=== PATIENT | female | born 1995 | race Caucasian/White ===

== ENCOUNTER 2017-10-24 21:15 | Emergency (ER) ==
[2017-10-24 21:25] VITALS: BP 119/77; TEMP 100.7; BMI 25.0
[2017-10-24] MEDS ORDERED: MOTRIN PO STA (21:49)
[2017-10-24] MEDS ORDERED: AMOXIL PO STA (22:20)
--- NOTE | 2017-10-24 22:30 | ED.PDOC ---
General ED Provider: Dr. DARRYL OCAMPO Chief Complaint: Sore Throat Stated Complaint: Patient comes to the ER having fever, headache and feeling bad 2 days ago. Tmax 102 yesterday, sore throat, pain in ears. Also reports that she had emesis x 3 yesterday. He son diagnosed with flu a 1 1/2-2 weeks ago Time Seen by Physician: 22:00 Mode of Arrival: Walk-In Information Source: Patient Exam Limitations: No limitations Primary Care Provider: OPHELIA LINDA Nursing and Triage Documentation Reviewed and Agree: Yes Reviewed sepsis parameters & appropriate labs ordered?: Yes System Inflammatory Response Syndrome: Pulse >90 BPM Sepsis Protocol: For patient's 13 years and over: Temp is 96.8 and below OR 101 and greater Pulse >90 BPM Resp >20/minute Acutely Altered Mental Status Are patient's symptoms suggestive of a new infection, such as: -Pneumonia -Skin, Soft Tissue -Endocarditis -UTI -Bone, Joint Infection -Implantable Device -Acute Abdominal Infection -Wound Infection -Meningitis -Blood Stream Catheter Infection -Unknown System Inflammatory Response Syndrome: Not Applicable Review of Systems - Review Of Systems Constitutional: Reports: Fever, Loss of appetite Eyes: Reports: No symptoms Ears, Nose, Mouth, Throat: Reports: Throat pain Respiratory: Reports: No symptoms Cardiac: Reports: No symptoms GI: Reports: No symptoms : Reports: No symptoms Musculoskeletal: Reports: No symptoms Skin: Reports: No symptoms Neurological: Reports: No symptoms Endocrine: Reports: No symptoms Hematologic/Lymphatic: Reports: No symptoms All Other Systems: Reviewed and Negative Past Medical History - Past Medical History Previously Healthy: Yes Endocrine: Reports: None Cardiovascular: Reports: None Respiratory: Reports: None Hematological: Reports: None Gastrointestinal: Reports: None Genitourinary: Reports: None Neuro/Psych: Reports: None Musculoskeletal: Reports: None Cancer: Reports: None Last Menstrual Period: LAST WEEK - Surgical History General Surgical History: Reports: , Tonsillectomy, Adenoidectomy - Family History Family History: Reports: None - Social History Smoking Status: Never smoker Hx Substance Use: No Alcohol Screening: None - Immunizations Tetanus Shot up to Date: Yes Physical Exam - Physical Exam Appearance: Ill-appearing, Well-nourished Ill-appearing: Moderate Pain Distress: Moderate Eyes: ERICH, EOMI, Conjunctiva clear ENT: Ears normal, Nose normal, Oropharynx normal Neck: Supple Respiratory: Airway patent, Breath sounds clear, Breath sounds equal, Respirations nonlabored Cardiovascular: RRR, Pulses normal, No rub, No murmur Musculoskeletal: Normal strength, ROM intact, No edema, No calf tenderness Skin: Warm, Dry, Normal color Neurological: Sensation intact, Motor intact, Cranial nerves intact, Alert, Oriented Psychiatric: Affect appropriate, Mood appropriate Critical Care Note - Critical Care Note Total Time (mins): 0 Course - Course Orders, Labs, Meds: Lab Review 10/24/17 22:02 Influenza A (Rapid) Negative by naat Influenza B (Rapid) Negative by naat Orders Category Date Time Status FLU A & B MOLECULAR [FLU A/B MOLECULAR] Stat LAB 10/24/17 22:02 Completed MOLECULAR GROUP A STREP Stat LAB 10/24/17 22:02 Completed Amoxicillin [Amoxil] MEDS 10/24/17 22:20 Discontinued 500 mg PO ONCE STA Ibuprofen [Motrin] MEDS 10/24/17 21:49 Discontinued 800 mg PO ONCE STA Medications Discontinued Medications Generic Name Dose Route Start Last Admin Trade Name Longq PRN Reason Stop Dose Admin Amoxicillin 500 mg 10/24/17 22:20 10/24/17 22:26 Amoxil PO 10/24/17 22:21 500 mg ONCE STA Administration Ibuprofen 800 mg 10/24/17 21:49 10/24/17 22:04 Motrin PO 10/24/17 21:50 800 mg ONCE STA Administration Vital Signs: Temp Pulse Resp BP Pulse Ox 10/24/17 21:16 100.7 F H 93 H 20 119/77 95 Departure - Departure Time of Disposition: 22:30 Disposition: HOME SELF-CARE Discharge Problem: Streptococcal sore throat Instructions: Strep Throat (ED) Condition: Stable Pt referred to PMD for follow-up: Yes IPMP verified?: No Additional Instructions: push fluids Take medications as prescribed Follow up with PCP in 3 days Prescriptions: Amoxicillin [Amoxil] 500 mg PO TID #30 capsule Ibuprofen [Motrin] 600 mg PO Q6H PRN #30 tablet PRN Reason: Analgesia Allergies/Adverse Reactions: Allergies No Known Allergies Allergy (Verified 10/24/17 21:24) Home Medications: Ambulatory Orders Amoxicillin [Amoxil] 500 mg PO TID #30 capsule 10/24/17 Ibuprofen [Motrin] 600 mg PO Q6H PRN #30 tablet 10/24/17 Disposition Discussed With: Patient, Family
== END 2017-10-24 22:38 | disposition home or self-care (01) ==
LOC: ED 21:15
DX: J02.0 Streptococcal pharyngitis (principal)
CPT/HCPCS: 87502; 87651; 99283

== ENCOUNTER 2017-11-14 23:03 | Emergency (ER) ==
[2017-11-14 23:08] VITALS: TEMP 99; BMI 25.0
[2017-11-14] MEDS ORDERED: DUONEB NEB STA (23:51)
--- NOTE | 2017-11-15 01:43 | CT ---
Exam: CT angiography of the chest History: Dyspnea Technique: [address] of the chest utilizing CT angiography protocol. Multiplanar and thr ee-dimensional reformations were performed. FINDINGS: Technically adequate for evaluation of pulmonary arteries and aorta. There are no pulmona ry artery filling defects. The lung windows show no pulmonary parenchymal abnormalities. The heart, great vessels and pericardium appear normal. No mediastinal lymph node enlargement or abundance. N o abnormalities of the chest wall soft tissues or bony thorax. No abnormalities of the upper abdomen are seen. Impression: 1. No evidence of pulmonary artery thrombus. No abnormalities of the chest.
[2017-11-15 02:28] VITALS: BP 110/77
--- NOTE | 2017-11-15 02:30 | ED.PDOC ---
General ED Provider: Dr. OPHELIA LINDA-ER Chief Complaint: Sore Throat Stated Complaint: elisabeth got flu like symptoms wtih cough and sore throat wtih chills and fever Time Seen by Physician: 23:10 Mode of Arrival: Walk-In Information Source: Patient Exam Limitations: No limitations Primary Care Provider: OPHELIA LINDA Nursing and Triage Documentation Reviewed and Agree: Yes Reviewed sepsis parameters & appropriate labs ordered?: Yes System Inflammatory Response Syndrome: Not Applicable Sepsis Protocol: For patient's 13 years and over: Temp is 96.8 and below OR 101 and greater Pulse >90 BPM Resp >20/minute Acutely Altered Mental Status Are patient's symptoms suggestive of a new infection, such as: -Pneumonia -Skin, Soft Tissue -Endocarditis -UTI -Bone, Joint Infection -Implantable Device -Acute Abdominal Infection -Wound Infection -Meningitis -Blood Stream Catheter Infection -Unknown Respiratory Complaint Exam - Respiratory Complaint/Exam Onset/Duration: 24 hr Symptoms Are: Still present Timing: Intermittent Initial Severity: Mild Current Severity: Mild Location: Chest Character: Reports: Non-productive cough Aggravating: Reports: URI Alleviating: Reports: None Associated Signs and Symptoms: Reports: Fever, Chills, URI, Nasal congestion, Sore throat. Denies: Rapid breathing, Dyspnea, Chest pain, Pleuritic chest pain , Wheezing, Hemoptysis, Dizziness, Calf swelling, Edema, Hoarseness, Vomiting, Weight loss Related History: Reports: Similar episode History of Healthcare-Acquired Pneumonia: No Home Oxygen Use: No Recent Stress Test: No Recent Echo/LV Function: No Current Antibiotic Use: No Current Asthma Medication Use: No Respiratory Distress: None Inadequate Respiratory Effort: No Dysphagia Present: No Stridor Present: No JVD Present: No Accessory Muscle Use: No Retractions: Not Present Diminished Breath Sounds: No Sinus Tenderness: None Grunting Respirations: No Kussmaul Respirations: No Differential Diagnoses: Pneumonia, Bronchitis, Influenza Review of Systems - Review Of Systems Constitutional: Reports: No symptoms Eyes: Reports: No symptoms Ears, Nose, Mouth, Throat: Reports: Nose discharge, Throat pain Respiratory: Reports: Cough Cardiac: Reports: No symptoms GI: Reports: No symptoms : Reports: No symptoms Musculoskeletal: Reports: No symptoms Skin: Reports: No symptoms Neurological: Reports: No symptoms Endocrine: Reports: No symptoms Hematologic/Lymphatic: Reports: No symptoms All Other Systems: Reviewed and Negative Past Medical History - Past Medical History Previously Healthy: Yes Endocrine: Reports: None Cardiovascular: Reports: None Respiratory: Reports: None Hematological: Reports: None Gastrointestinal: Reports: None Genitourinary: Reports: None Neuro/Psych: Reports: None Musculoskeletal: Reports: None Cancer: Reports: None Last Menstrual Period: CURRENT - Surgical History General Surgical History: Reports: , Tonsillectomy, Adenoidectomy - Family History Family History: Reports: None - Social History Smoking Status: Never smoker Hx Substance Use: No Alcohol Screening: Occasionally - Immunizations Tetanus Shot up to Date: Yes Physical Exam - Physical Exam Appearance: Well-appearing, No pain distress, Well-nourished Eyes: ERICH, EOMI, Conjunctiva clear ENT: Ears normal, Nose normal, Oropharynx normal Neck: Supple Respiratory: Airway patent, Breath sounds equal, Rhonchi Cardiovascular: RRR GI/: Soft, Nontender, No masses, Bowel sounds normal, No Organomegaly Musculoskeletal: Normal strength, ROM intact, No edema, No calf tenderness Skin: Warm, Dry, Normal color Neurological: Sensation intact, Motor intact, Reflexes intact, Cranial nerves intact, Alert, Oriented Psychiatric: Affect appropriate, Mood appropriate Interpretation - Radiology Interpretation Radiology Interpretation By: Radiologist Radiology Results: Negative Exam Interpreted: CT Scan Critical Care Note - Critical Care Note Total Time (mins): 0 Course - Course Hematology/Chemistry: 11/15/17 00:20 11/15/17 00:20 Orders, Labs, Meds: Lab Review 11/14/17 11/15/17 11/15/17 23:12 00:20 00:20 WBC 7.85 RBC 4.35 Hgb 11.4 L Hct 35.3 L MCV 81.1 MCH 26.2 L MCHC 32.3 RDW Coeff of Joaquin 14.2 Plt Count 263 Immature Gran % (Auto) 0.3 Neut % (Auto) 69.7 Lymph % (Auto) 23.1 [place] % (Auto) 6.6 Eos % (Auto) 0.0 Baso % (Auto) 0.3 Immature Gran # (Auto) 0.0 Neut # 5.5 Lymph # 1.8 [place] # 0.5 Eos # 0.0 Baso # 0.0 Sodium 139 Potassium 3.3 L Chloride 102 Carbon Dioxide 27 Anion Gap 13.3 BUN 9 Creatinine 0.82 Estimated GFR (MDRD) 86.00 BUN/Creatinine Ratio 10.97 Glucose 93 Calcium 9.1 Total Bilirubin 0.3 AST 14 L ALT 10 L Alkaline Phosphatase 65 B-Natriuretic Peptide Total Protein 7.4 Albumin 3.7 Globulin 3.7 Albumin/Globulin Ratio 1.00 Serum , Qual Influenza A (Rapid) Negative by naat Influenza B (Rapid) Negative by naat 11/15/17 11/15/17 00:20 00:20 WBC RBC Hgb Hct MCV MCH MCHC RDW Coeff of Joaquin Plt Count Immature Gran % (Auto) Neut % (Auto) Lymph % (Auto) [place] % (Auto) Eos % (Auto) Baso % (Auto) Immature Gran # (Auto) Neut # Lymph # [place] # Eos # Baso # Sodium Potassium Chloride Carbon Dioxide Anion Gap BUN Creatinine Estimated GFR (MDRD) BUN/Creatinine Ratio Glucose Calcium Total Bilirubin AST ALT Alkaline Phosphatase B-Natriuretic Peptide < 10 Total Protein Albumin Globulin Albumin/Globulin Ratio Serum , Qual Negative Influenza A (Rapid) Influenza B (Rapid) Orders Category Date Time Status NEBULIZER TREATMENT Stat CARDIO 11/14/17 23:51 Completed NPO REMINDER: IMAGING ONCE CARE 11/14/17 23:51 Completed ED IV/MEDIPORT/POWERPORT .ONCE EMERGENCY 11/14/17 23:50 Active BLOOD CULTURE (ED ONLY) Stat LAB 11/14/17 Results BNP [B-TYPE NATRIURETIC PEPTIDE] Stat LAB 11/14/17 23:51 Completed CBC W/ AUTO DIFF Stat LAB 11/14/17 23:50 Completed COMPREHENSIVE METABOLIC PANEL Stat LAB 11/14/17 23:50 Completed FLU A/B MOLECULAR Stat LAB 11/14/17 23:12 Completed MOLECULAR GROUP A STREP Stat LAB 11/14/17 23:12 Completed SERUM Stat LAB 11/14/17 23:50 Completed 0.9 % Sodium Chloride [Saline Flush] MEDS 11/14/17 23:50 Discontinued 1 syr IVF PRN PRN Ipratropium/Albuterol Neb [Duoneb] MEDS 11/14/17 23:51 Discontinued 1 vial NEB ONCE STA CT CHEST PE PROTOCOL Stat RADS 11/15/17 00:09 Completed Medications Discontinued Medications Generic Name Dose Route Start Last Admin Trade Name Freq PRN Reason Stop Dose Admin Albuterol/Ipratropium 1 vial 11/14/17 23:51 11/15/17 00:05 Duoneb NEB 11/14/17 23:52 1 vial ONCE STA Administration Sodium Chloride 1 syr 11/14/17 23:50 Saline Flush IVF PRN PRN To flush IV Vital Signs: Temp Pulse Resp BP Pulse Ox 11/15/17 01:50 99 F 92 H 20 110/77 100 11/14/17 23:05 99 F 96 H 16 122/81 98 Departure - Departure Time of Disposition: 02:30 Disposition: HOME SELF-CARE Discharge Problem: Sore throat symptom, Cough Instructions: Acute Bronchitis (ED) Condition: Good Pt referred to PMD for follow-up: Yes IPMP verified?: No Additional Instructions: augmentin 875mg bid x 7days--tamiflu 75mg bid x 5 days--motrin/tylenol for temp and pain--rest--fluids--recheck in 72 hrs if not better Allergies/Adverse Reactions: Allergies No Known Allergies Allergy (Verified 11/14/17 23:08) Home Medications: Ambulatory Orders 1 [No Reported Medications] 11/14/17 Disposition Discussed With: Patient, Family
== END 2017-11-15 02:48 | disposition home or self-care (01) ==
LOC: ED 23:03
DX: J20.9 Acute bronchitis, unspecified (principal); J02.9 Acute pharyngitis, unspecified
CPT/HCPCS: 36415; 80053; 83880; 84703; 85025; 87040; 87502; 87651; 94640; 99284

== ENCOUNTER 2018-01-11 22:28 | Outpatient (CLI) ==
[2013-03-17 17:14] VITALS: TEMP 97.6
== END 2018-01-11 22:29 | disposition home or self-care (01) ==
LOC: NONPT 22:28
PROVIDERS: ATTEND Nurse Practitioner Family
DX: R10.84 Generalized abdominal pain (principal); R11.2 Nausea with vomiting, unspecified; R12 Heartburn
CPT/HCPCS: 80053; 81001; 82150; 83690; 85025; 86677